=== PATIENT | male | born 1950 | race Caucasian/White ===

== ENCOUNTER 2023-07-28 09:30 | Emergency (ER) | payer OTHER, SELFPAY ==
[2023-07-28 09:31] VITALS: BP 221/103; PULSE 70; RESP 16; TEMP 36.4; O2SAT 98; BMI 44.5
[2023-07-28 09:36] VITALS: BP 221/103; PULSE 70; RESP 16; TEMP 36.4; O2SAT 98
--- NOTE | 2023-07-28 09:59 | ED.VIS.LOWEX ---
HPI History of Present Illness Chief Complaint: Lower Extremity Injury Narrative Narrative: 72-year-old male past medical history of hypertension presents with a right hip injury that he sustained over a month ago. He states he was in his living room and tripped over his shoelace, hitting his left shoulder and right hip. He and his family thought that his right hip was getting better, but over the last few days, he has had increased pain with standing and walking. He states he does not have a lot of pain when he is lying or sitting, but as soon as he goes to stand up and walk, he gets pain in his right groin/inguinal area and right hip. At the time of his initial injury, he denies hitting his head or loss of consciousness. He does not take blood thinners. He is here mainly because of the worsening pain in his right hip. PFSH PFSH Home Medications oxycodone-acetaminophen 5 mg-325 mg tablet (Percocet) 1 tab PO Q6H PRN pain 3 days #12 tabs 07/28/23 [Rx Last Taken Unknown] Allergy/AdvReac Type Severity Reaction Status Date / Time No Known Allergies Allergy Verified 07/28/23 11:13 Social History Smoking Status: Never smoker ROS ROS ED ROS Narrative Constitutional: No fever, no chills. HEENT: No sore throat. No neck pain. No loss of vision. No rhinorrhea. Cardiovascular: No chest pain. No palpitations. No pedal edema. Respiratory: No cough, no shortness of breath. Abdominal: No abdominal pain. No nausea. No vomiting. Genitourinary: No dysuria. No hematuria. Musculoskeletal: No myalgias. Right hip pain, worse with movement. Right groin pain. Neurologic: No headaches. No dizziness. No lightheadedness. Skin: No rash. No change in color. Psychiatric: No depression. No anxiety. EXAM Physical Exam Narrative Exam Narrative: Afebrile. Vital signs noted. HEENT: Normocephalic. Atraumatic. PERRL, EOMI. Neck soft and supple. No point tenderness or step off. Cardiovascular: Regular rate and rhythm. No murmurs, rubs, or gallops appreciated. Respiratory: No tachypnea. Lungs clear to auscultation bilaterally. Gastrointestinal: Abdomen soft, nontender, with normoactive bowel sounds. No rebound or guarding. Neurological: Awake. Alert. Nonfocal, nonlateralizing. Skin: No rash. Normal color. No pallor. Musculoskeletal: No pedal edema. Full range of motion extremities. However, pain with logrolling of right femur. Diffuse tenderness palpation right hip and inguinal area but no palpable hernia. Const Vital Signs: 07/28/23 09:31 07/28/23 09:36 07/28/23 11:05 Temperature 97.6 F L 97.6 F L Temperature Source Temporal Temporal Pulse Rate 70 70 88 Respiratory Rate 16 16 16 Blood Pressure 221/103 H 221/103 H 190/88 H Blood Pressure Mean 142 142 122 Pulse Ox 98 98 98 Oxygen Delivery Method Room Air Room Air Room Air MDM MDM MDM Narrative Medical decision making narrative: Service for hip contusion versus fracture. Patient has been walking on it and there is no shortening or external rotation of his right leg, but he may have had an occult fracture which worsened over time. He declined any analgesics currently. I did note that his blood pressure is severely elevated at 221/103. Although he is asymptomatic, I do feel that he would need to be treated for such a high blood pressure. X-rays will also be obtained of the right hip and pelvis. On my independent interpretation of his pelvis and right hip x-ray, I see no evidence of acute fracture, there are degenerative changes noted in both hips but no evidence of dislocation. I reviewed the radiology report which confirms my independent interpretation. He was given 1 Percocet tablet here in the emergency department and a prescription written for the next 3 days. Upon repeat examination, he is sitting in bed and his blood pressure is now 156 systolic. He did explain that he does have whitecoat syndrome essentially. At this point in time I do not feel he requires observation. He has a walker. He was referred to the orthopedic surgeon on-call, Dr. Sekou Mcgowan, for further evaluation of his hip pain and osteoarthritis. I feel he does not require observation. Disposition is discharged home in stable condition. Radiography Diagnostic Testing: Clinical Impression(s) from Imaging Studies Hip/Pelvis X-Ray 07/28/23 10:00 IMPRESSION: Moderate degree of osteoarthritis involving both hip joints. No acute fracture or dislocation is seen. Degenerative changes of the lower lumbar spine and sacroiliac joints bilaterally. Electronically Signed: Elio Cash MD at 10:35 EDT , Discharge Plan Triage Chief Complaint: Lower Extremity Injury ED Provider: Alphonso Flores Dx/Rx/DC Orders Clinical Impression: Osteoarthritis of right hip, Hip pain, right, White coat syndrome with diagnosis of hypertension Instructions: ED Hip Contusion, ED Hip Strain, ED Osteoarthritis Prescriptions: New oxycodone-acetaminophen [Percocet] 5-325 mg tablet 1 tab PO Q6H PRN (Reason: pain) 3 Days Qty: 12 0RF Primary Care Provider: Rickey Hager Referrals: Sekou Mcgowan MD [Med Staff - Active Staff] - As soon as possible Activity Restrictions/Additional Instructions: Follow-up with your primary care physician for continued narcotic pain medication. Follow-up with orthopedic surgery as soon as possible regarding osteoarthritis of your right hip. Disposition Disposition: Home, Self Care
--- NOTE | 2023-07-28 10:00 | RAD_ITS ---
STUDY: X-RAY - PELVIS AND RIGHT HIP REASON FOR EXAM: Male, 72 years old. Right hip pain following a fall. TECHNIQUE: 3 views of the pelvis and hip. COMPARISON: None. FINDINGS: There is a non-specific bowel gas pattern. Normal visualized soft tissue structures. There is narrowing with cortical sclerosis and osteophyte formation of the sacroiliac joint consistent with degenerative osteoarthritic changes. Normal bilateral superior and inferior pubic rami. Normal pubic symphysis. Normal bilateral ischial tuberosities. Normal visualized femoral head. Normal acetabulum. There is moderate articular joint space narrowing of the hip. RAD/HIP, UNI W/ Pelvis 2-3 Views IMPRESSION: Moderate degree of osteoarthritis involving both hip joints. No acute fracture or dislocation is seen. Degenerative changes of the lower lumbar spine and sacroiliac joints bilaterally. Electronically Signed: Elio Cash MD at 10:35 EDT ,
[2023-07-28 11:05] VITALS: BP 190/88; PULSE 88; RESP 16; O2SAT 98
[2023-07-28] MEDS: Oxycodone/Apap 5/325 Tablet PO (11:11)
== END 2023-07-28 12:22 | disposition home or self-care (01) ==
LOC: ED 11:25
PROVIDERS: Emergency Provider Emergency Medicine; PCP Family Medicine; Visit Provider Emergency Medicine
DX: M16.11 Unilateral primary osteoarthritis, right hip (principal); I10 Essential (primary) hypertension; M25.551 Pain in right hip
CPT/HCPCS: 99281 ×2; 73502; 99282